=== PATIENT | female | born 1935 | race Caucasian/White ===

== ENCOUNTER → 2017-03-14 | Outpatient (CLI) | payer MEDICARE, BC ==
[~2017-03-14] MED LIST: ASPIRIN81 M2 MT; BABY ASPIRIN81 MG PO; BESIVANCE5 ML; DUREZOL5 ML; KETOROLAC TROMET5 ML; LISINOPRIL-HCT1 EAC3 PO; LOVAZA1 GM PO; NORVASC5 MG PO; RESTASIS1 EACH; Z CITRACAL MT; Z.0.CLONAZEPAM0.5 MG PO; Z.0.LIPITOR20 MG PO; Z.0.LOVAZA1 GM MT; Z.0.PROTONIX40 MG PO; [UNRECOGNIZED DRUG - OTHER] MT
--- NOTE | 2017-03-14 16:13 | Diagnostic Imaging Report ---
Exam: Bone mineral density study. History: Menopausal. Osteoporosis?] Breast mass. Comparison: 06/27/2012 Discussion: Evaluation of the left hip and lumbar spine was performed utilizing DEXA Hologic bone densitometer. The study is technically adequate. The patient's fracture risk is compared to an age-matched control. The patient denies prior surgery/fracture of the spine, hips or forearm. . Left hip femoral neck bone mineral density: 0.681 g/cm2, T-score is -1.5, Z-score is 0.8. No previous comparison. Left hip total bone mineral density: 0.800 g/cm2, T-score is -1.2 Z-score is 0.9. BMD change versus previous is 5.7%. The FRAX 10-year probability of major osteoporotic fracture is 13% and hip fracture is 3.3%. These probabilities assume the patient is untreated. Lumbar spine total bone mineral density: 1.310 gm/cm2, T-score is 2.4, Z-score is 5.1. BMD change versus previous is 2.0% Impression: 1. Bone mineralization by WHO Classification is osteopenia. Increased risk of fracture. Recommendations: Medical evaluation for secondary causes of low bone mineral density may be appropriate. Correlate clinically for the necessity and timing of the next bone mineral density study. National Osteoporosis Foundation recommendations: Initiate therapy to reduce fracture risk in postmenopausal women with -BMD t-scores below -2 by central DXA with no risk factors -BMD t-scores below -1.5 by central DXA with one or more risk factors (first deg relative with hip fracture, prior personal fracture, low body weight, smoking) -A prior vertebral or hip fracture AACE (Clinical Endocrinology) recommends treating the following: Postmenopausal women who have osteoporosis as diagnosed by fragility fractures or t scores -2.5 or below Postmenopausal women who have risk factors (including fh of hip fracture, low body weight, smoking, risk of falling, high bone turnover, advancing age) and borderline low BMD T scores of -1.5 or below Adequate intake of calcium (at least 1200mg/day) and vitamin D (400-800 IU/day). Regular weight bearing and muscle - strengthening exercises Avoid smoking and excessive alcohol Signed by: Dr. Mino Perez M.D. on 03/14/2017 4:09 PM
--- NOTE | 2017-03-15 08:29 | Diagnostic Imaging Report ---
#[id number] - USBRELIMRT ULTRASOUND OF THE RIGHT BREAST : 03/14/2017 Comparison is made to exams dated: 08/17/2016 mammogram, 08/17/2016 ultrasound, 08/03/2016 mammogram and 11/09/2013 mammogram - [facility]. Color flow and real-time focused ultrasound were performed on the right breast with scanning from 6-9 o'clock. -At 8 o'clock 3 cm from the nipple there is a hyoechoic nodule measuring 0.2 x 0.1 x 0.2 cm (previously measured 0.4 x 0.2 x 0.3 cm). This appears benign. IMPRESSION: BENIGN There is no sonographic evidence of malignancy. A 1 year bilateral screening mammogram is recommended and should be performed in July 2017. Hadley Friedman Jr., D.O. cw/:03/14/2017 13:38:10 [employer]: SERG FELIZ, [facility] letter sent: Normal Exam Ultrasound BI-RADS: 2 Benign
--- NOTE | 2017-03-15 18:00 | Diagnostic Imaging Report ---
PROCEDURE: CT CHEST WITHOUT CONTRAST CT scan of the chest WITHOUT intravenous contrast, using standard protocol. TECHNIQUE: The chest was scanned utilizing a multidetector helical scanner from the apex to the level of the adrenal glands. No IV contrast. Coronal and sagittal multiplanar reformations were obtained. COMPARISON: None. INDICATIONS: NODULE FINDINGS: Lines/tubes: None. Lungs and Airways: Subsegmental atelectasis and scarlike opacities in the lung bases. Calcified granuloma in the right middle lobe series 3, image 46). 4 mm nodule along the minor fissure (series 3, image 47) is probably an intrapulmonary lymph node. No suspicious nodules are identified. Pleura: The pleural spaces are clear. Heart and mediastinum: Multiple calcified mediastinal and right hilar lymph nodes indicate healed granulomatous disease. Thyroid gland is normal. Normal heart size. No pericardial effusion. Severe atherosclerotic calcifications of the thoracic aorta and coronary arteries. Soft tissues: Normal. Abdomen: Small hiatal hernia. Scattered calcified granulomas throughout the liver and spleen. Bones: Multilevel degenerative changes of the thoracic spine. IMPRESSION: Healed granuloma the right middle lobe. A 4 mm nodule along the minor fissure is probably an intrapulmonary lymph node. Otherwise no suspicious pulmonary parenchymal nodules. Dictated by: Jeremi Forrester M.D. on 03/15/2017 at 18:09 Electronically approved by: Jeremi Forrester M.D. on 03/15/2017 at 18:09
== END ==
LOC: US 11:02
PROVIDERS: ATTEND Family Medicine
DX: R92.8 Other abnormal and inconclusive findings on diagnostic imaging of breast (principal); R92.2 Inconclusive mammogram; Z13.820 Encounter for screening for osteoporosis
CPT/HCPCS: 71250; 77080

== ENCOUNTER 2017-09-28 09:12 | Observation (INO) | payer MEDICARE, BC ==
[~2017-09-28] VITALS: Ht 154.9 cm; Wt 71.2 kg
[~2017-09-28 09:12] MED LIST changes: -RESTASIS1 EACH; +RESTASIS1 EACH OU
[2017-09-28 09:21] VITALS: BP 176/74
[2017-09-28] MEDS ORDERED: ONDANSETRON HCL 4 MG ORAL DISINTEGRATING TAB PO PRN (09:45)
[2017-09-28] MEDS ORDERED: ACETAMINOPHEN 325 MG TAB PO PRN (09:45)
[2017-09-28] MEDS ORDERED: HYDROCODONE/APAP 5MG-325MG TAB PO PRN (09:45)
[2017-09-28 09:49] VITALS: BP 176/74
[2017-09-28 09:58] VITALS: BP 176/74
[2017-09-28 10:26] LABS: CREATINE KINASE MB 0.7 ng/mL (0-5.0)
[2017-09-28 11:52] VITALS: BP 146/65
[2017-09-28 12:00] VITALS: BP 146/65
[2017-09-28] MEDS ORDERED: CLONAZEPAM 0.5 MG TAB PO PRN (12:30)
[2017-09-28 14:21] LABS: ALBUMIN 3.4 g/dL (3.5-5.0); BILIRUBIN,DIRECT 0.2 mg/dL (0.0-0.5)
[2017-09-28] MEDS ORDERED: VITAMIN D1000 UNI1 PO (15:19)
[2017-09-28] MEDS ORDERED: CALCIUM CARBON500 MG PO (15:20)
[2017-09-28] MEDS ORDERED: TRICOR145 MG PO (15:22)
[2017-09-28 15:28] LABS: CREATINE KINASE 55 IU/L (29-168)
[2017-09-28 16:42] VITALS: BP 137/63
[2017-09-28] MEDS ORDERED: PANTOPRAZOLE SOD 40 MG TABEC PO SCH (17:00)
--- NOTE | 2017-09-28 19:52 | History and Physical ---
CHIEF COMPLAINT: Chest pressure. HISTORY OF PRESENT ILLNESS: This is an 82-year-old female with past medical history of anxiety, chronic pain, hypertension, who comes in as a direct admission from an outside ER with complaints of chest pressure that began yesterday that went away prior to arrival to the outside ER. Patient sees Dr. Griffin as her primary engraver and was seen at the ER at the outside facility her first choice. EKG showed no acute findings and cardiac enzymes were negative. Patient was then transferred here for further management and care as they called the primary engraver and was told to come to [facility] for further evaluation. While here, the patient's engraver who was covering is Dr. Head cleared the patient for discharge once the third enzyme is back and negative. Patient's repeat cardiac enzymes on 2 enzymes were reported to be negative in the lab findings. Patient otherwise was doing well with no other complaints. She has no other chest pain or pressure. She actually states she is doing well, but no other issues at this time. Denies any nausea, vomiting or any other complaints. REVIEW OF SYSTEMS PERTINENT POSITIVE: For chest pressure. PERTINENT NEGATIVE: Denies any chest pain, palpitation, nausea, vomiting, diarrhea, dysuria, hematuria, frequency, urgency, lightheadedness, dizziness, abdominal pain, headache, shortness of breath, cough, congestion, fever or any other complaints. The rest of the 14-point review of systems have been reviewed with the patient and are negative. ALLERGIES: CODEINE. HOME MEDICATIONS: Norvasc 5 mg a day, aspirin 81 mg a day, Lipitor 20 mg at bedtime, Klonopin 0.5 mg daily p.r.n. for anxiety, and Protonix 40 mg twice daily. PAST MEDICAL HISTORY: Anxiety, hyperlipidemia, and hypertension. SURGICAL HISTORY: Reports none. FAMILY HISTORY: Hypertension, diabetes. SOCIAL HISTORY: No drugs. No alcohol. Does not smoke. Good social support. Has children. VITAL SIGNS: Temperature of 96.2, pulse 50, respiratory rate is 16, blood pressure is 146/65. LABORATORY DATA: Lab findings show white count found to be normal, hemoglobin normal. Direct bilirubin is 0.2. AST is slightly elevated at 137, ALT 133, alk phos is 81. Troponins were negative times 2 here in this hospital and times 1 at the outside facility. Albumin is 3.4. MICROBIOLOGY: None. IMAGING STUDIES: None. PHYSICAL EXAM GENERAL: Not in acute distress. Alert, oriented times 3, cooperative on examination. HEENT: Head normocephalic, atraumatic. Eyes: Pupils are equal, round, and reactive to light bilaterally. Extraocular movements intact bilaterally. Throat: No evidence of any erythema or exudates in the posterior pharynx, has poor dentition. NECK: Supple. Good range of motion. PULMONARY: Clear to auscultation bilaterally. No wheezing. No rales. No rhonchi. No crackles appreciated. CARDIOVASCULAR: Positive S1 and S2. No murmurs, rubs or gallops appreciated. ABDOMEN: Soft, nondistended, nontender to palpation. Bowel sounds presents. MUSCULOSKELETAL: Strength is 5/5 throughout. No evidence of any muscle deficit on examination. No muscle weakness appreciated. NEUROLOGIC: Cranial nerves II-XII are grossly intact. No evidence of any neurologic deficits on exam. SKIN: Intact. Warm to touch. Good capillary refill. PSYCHIATRIC: Normal affect and mood. EXTREMITIES: No edema. Good range of motion throughout. IMPRESSIONS 1. Chest pain likely atypical due to underlying musculoskeletal etiology and has been cleared by cardiology for discharge. 2. Hypertension. 3. Hyperlipidemia. 4. Elevated transaminases. PLAN: At this time in relation to her elevated transaminases, I advised her to follow up as an outpatient with the GI specialist to repeat labs in 1 week. Currently unknown etiology for elevated LFTs and she wants to go home. Cardiology evaluated her and cleared the patient for discharge home. Patient has negative cardiac enzymes times 3. EKG showed no acute findings. Per cardiology, they had no further workup at this time and the patient was cleared by cardiology for discharge. Patient is to resume same home medications with no changes in her regimen. On the day of discharge, her vital signs were stable, hemodynamically stable. Patient seen, evaluated, and examined thoroughly on the day of discharge. No other complaints. Patient verbalized understanding and agrees with the plan of care, to follow up accordingly as an outpatient with her primary care physician in 1 week and engraver in 2 weeks. MEDICATIONS: See med reconciliation form. DISPOSITION: To home. CONDITION: Stable. FOLLOWUP: With PCP and engraver in 1 to 2 weeks. In the event of any worsening symptoms, the patient was taken back to the ED for further evaluation. Discharge summary took greater than 35 minutes. Job#: [id number] VAS
[2017-09-28] MEDS ORDERED: ATORVASTATIN 20 MG TAB PO SCH (21:00)
[2017-09-29] MEDS ORDERED: AMLODIPINE BESYLATE 5 MG TAB PO SCH (09:00)
[2017-09-29] MEDS ORDERED: ASPIRIN 81 MG CHEW TAB PO SCH (09:00)
== END 2017-09-28 17:38 | disposition home or self-care (01) ==
LOC: IMCU 09:12
PROVIDERS: ADMIT Internal Medicine; ATTEND Internal Medicine
DX: R07.89 Other chest pain (principal); F41.9 Anxiety disorder, unspecified; G89.29 Other chronic pain; I10 Essential (primary) hypertension; Z88.5 Allergy status to narcotic agent; E78.5 Hyperlipidemia, unspecified; R74.0 Nonspecific elevation of levels of transaminase and lactic acid dehydrogenase [LDH]; K21.9 Gastro-esophageal reflux disease without esophagitis
CPT/HCPCS: 36415; 80076; 82550; 82553; 84484; G0378

== ENCOUNTER → 2018-08-12 | Outpatient (CLI) | payer MEDICARE, BC ==
[~2018-08-12] MED LIST changes: +CALCIUM CARBON500 MG PO; +TRICOR145 MG PO; +VITAMIN D1000 UNI1 PO
== END ==
LOC: MAMMO 10:47
PROVIDERS: ATTEND Internal Medicine
DX: Z12.31 Encounter for screening mammogram for malignant neoplasm of breast (principal)
CPT/HCPCS: 77067

== ENCOUNTER → 2020-04-29 | Outpatient (CLI) | payer MEDICARE, BC | LOC: MAMMO 09:17 | PROVIDERS: ATTEND Internal Medicine | DX: Z12.31 Encounter for screening mammogram for malignant neoplasm of breast (principal) | CPT/HCPCS: 77067 ==

== ENCOUNTER → 2024-02-27 | Day surgery (SDC) | payer MEDICARE, BC ==
[2024-02-17 13:05] LABS: BASOPHILS % 0.4 % (0.0-1.0); EOSINOPHILS # (AUTO) 0.1 (0.0-0.4); EOSINOPHILS % 2.5 % (0.0-6.0); HEMATOCRIT 35.8 % (34.2-44.1); HEMOGLOBIN 11.6 g/dL (12.0-16.0); LYMPHOCYTES # (AUTO) 1.1 (1.0-3.2); LYMPHOCYTES % 19.4 % (18.0-39.1); MEAN CORPUSCULAR HEMOGLOBIN 28.9 pg (28-32); MEAN CORPUSCULAR HGB CONC 32.4 g/dL (31-35); MEAN CORPUSCULAR VOLUME 89.1 fL (81-99); MONOCYTES # (AUTO) 0.6 (0.2-0.8); MONOCYTES % 10.4 % (4.4-11.3); NEUTROPHILS # (AUTO) 3.8 (2.1-6.9); NEUTROPHILS % 66.9 % (38.7-80.0); PLATELET COUNT 280 x10e3/uL (140-360); RED BLOOD COUNT 4.02 x10e6/uL (3.6-5.1); RED CELL DISTRIBUTION WIDTH 14.6 % (11.7-14.4); WHITE BLOOD COUNT 5.66 x10e3/uL (4.8-10.8)
[2024-02-17 13:29] LABS: ANION GAP 15.1 mmol/L (8-16); CALCIUM 10.3 mg/dL (8.4-10.2); CREATININE, SERUM 1.06 mg/dL (0.57-1.11); POTASSIUM 4.1 mmol/L (3.5-5.1)
[~2024-02-27] MED LIST changes: +AMOXICILLIN500 MG PO; +ASPIRIN81 MG PO; +BUPIVACAINE/EPI 0.5% 30ML SDV-MPF INJ ONE; +CRANBERRY200 MG; +DEXAMETHASONE SOD PHOS INJ 4 MG/ML SDV ONE; +ELIQUIS5 MG PO; +EPHEDRINE SULFATE INJ 50 MG/ML VIAL ONE; +FENOGLIDE40 MG; +FENTANYL CITRATE/PF 100MCG/2 ML INJ ONE; +HYDROCODON-ACE1 EA11 PO; +LIDOCAINE HCL 2% LOCAL INJ 5 ML SDV VIAL INJ ONE; +ONDANSETRON HCL INJ 2MG/ML 2ML 2 MG/ML VIAL ONE; +PROPOFOL IV EMULSION 0 ML IV ONE; +PROPOFOL IV EMULSION 10 MG/ML 20 ML VIAL ONE; +PROPOFOL IV EMULSION 50 ML IV ONE; +ROSUVASTATIN CA20 MG PO; +TRICOR48 MG PO; +VITAMIN C1000 MG PO; +ZYRTEC10 M3
[2024-02-27] MEDS: LACTATED RINGER'S 1,000 ML ONE (05:59)
[2024-02-27 10:02] VITALS: BP 124/67; PULSE 68; RESP 18; O2SAT 95
== END | disposition home or self-care (01) ==
LOC: OR 05:28 → EDSTATUS 07:30
PROVIDERS: ATTEND Plastic Surgery
DX: S63.413A Traumatic rupture of collateral ligament of left middle finger at metacarpophalangeal and interphalangeal joint, initial encounter (principal); M65.332 Trigger finger, left middle finger; I10 Essential (primary) hypertension; E78.5 Hyperlipidemia, unspecified; K21.9 Gastro-esophageal reflux disease without esophagitis; X58.XXXA Exposure to other specified factors, initial encounter; Z88.6 Allergy status to analgesic agent; Z01.810 Encounter for preprocedural cardiovascular examination; Z01.812 Encounter for preprocedural laboratory examination; Z01.818 Encounter for other preprocedural examination; Z79.02 Long term (current) use of antithrombotics/antiplatelets; Z79.82 Long term (current) use of aspirin; Z79.899 Other long term (current) drug therapy; Z95.0 Presence of cardiac pacemaker
CPT/HCPCS: 26055; 26437; 36415; 71046; 80048; 85025; 93005; J0690; J1100; J2003; J2405; J2704 ×2; J3010; J7121

== ENCOUNTER → 2024-03-20 | Outpatient (RCR) | payer MEDICARE, BC ==
[~2024-03-20] MED LIST changes: -BUPIVACAINE/EPI 0.5% 30ML SDV-MPF INJ ONE; -DEXAMETHASONE SOD PHOS INJ 4 MG/ML SDV ONE; -EPHEDRINE SULFATE INJ 50 MG/ML VIAL ONE; -FENTANYL CITRATE/PF 100MCG/2 ML INJ ONE; -LIDOCAINE HCL 2% LOCAL INJ 5 ML SDV VIAL INJ ONE; -ONDANSETRON HCL INJ 2MG/ML 2ML 2 MG/ML VIAL ONE; -PROPOFOL IV EMULSION 0 ML IV ONE; -PROPOFOL IV EMULSION 10 MG/ML 20 ML VIAL ONE; -PROPOFOL IV EMULSION 50 ML IV ONE
== END ==
LOC: OT 13:51
PROVIDERS: ATTEND Plastic Surgery
DX: S69.92XA Unspecified injury of left wrist, hand and finger(s), initial encounter (principal)
CPT/HCPCS: 97110; 97165; L3919

== ENCOUNTER → 2024-04-17 | Outpatient (RCR) | payer MEDICARE, BC | LOC: OT 03-23 13:45 | PROVIDERS: ATTEND Plastic Surgery | DX: S69.92XA Unspecified injury of left wrist, hand and finger(s), initial encounter (principal) ==

== ENCOUNTER 2024-05-13 15:00 | Outpatient (RCR) | payer MEDICARE, BC | END 2024-05-18 | LOC: OT 15:00 | PROVIDERS: ATTEND Plastic Surgery | DX: S69.92XA Unspecified injury of left wrist, hand and finger(s), initial encounter (principal) ==

== ENCOUNTER 2024-06-16 16:00 | Outpatient (RCR) | payer MEDICARE, BC | END 2024-06-17 | LOC: OT 16:00 | PROVIDERS: ATTEND Internal Medicine | DX: S69.92XA Unspecified injury of left wrist, hand and finger(s), initial encounter (principal) ==

== ENCOUNTER 2024-08-13 15:00 | Outpatient (RCR) | payer MEDICARE, BC | END 2024-08-17 | disposition home or self-care (01) | LOC: PT 15:00 | PROVIDERS: ATTEND Plastic Surgery | DX: S69.92XA Unspecified injury of left wrist, hand and finger(s), initial encounter (principal) ==

== ENCOUNTER → 2024-09-17 | Outpatient (RCR) | payer MEDICARE, BC | LOC: PT 08-24 17:23 | PROVIDERS: ATTEND Plastic Surgery | DX: S69.92XA Unspecified injury of left wrist, hand and finger(s), initial encounter (principal) ==

== ENCOUNTER 2024-09-25 09:59 | Outpatient (RCR) | payer MEDICARE, BC | END 2024-10-18 | LOC: PT 09:59 | PROVIDERS: ATTEND Plastic Surgery | DX: S69.92XA Unspecified injury of left wrist, hand and finger(s), initial encounter (principal) ==